=== PATIENT | male | born 2005 | race Caucasian/White ===

== ENCOUNTER 2023-01-08 10:02 | Emergency (ER) | payer OTHER, SELFPAY ==
[2023-01-08 10:13] VITALS: BP 121/82; PULSE 76; RESP 16; TEMP 37.7; O2SAT 99
--- NOTE | 2023-01-08 10:41 | ED.URI ---
HPI - URI/Sore Throat General Chief Complaint: Upper Respiratory Infection Stated Complaint: COVID+ Time Seen by Provider: 01/08/23 10:41 Source: patient Mode of arrival: ambulatory Limitations: no limitations History of Present Illness HPI Narrative: 17-year-old male presents with complaint of nasal congestion, sore throat, mild cough, headache, body aches, fever starting yesterday. No fever today. Not taking any [id number] medications to treat his symptoms. Did home COVID test today that was positive. States that his work needs note for quarantine. All systems reviewed and negative except as noted above. Related Data Home Medications Medication Instructions Recorded Confirmed No Home Medications 01/08/23 01/08/23 Allergies Allergy/AdvReac Type Severity Reaction Status Date / Time No Known Allergies Allergy Verified 01/08/23 10:13 Review of Systems Review of Systems: CONSTITUTIONAL: Reports fever, chills, or sweats. EYES: Denies visual changes, redness, or discharge. ENT: reports rhinorrhea, congestion, sore throat. Denies otalgia. CARDIOVASCULAR: Denies chest pain, palpitations, or edema. RESPIRATORY: reports cough. Denies dyspnea. GASTROINTESTINAL: Denies abdominal pain, nausea, vomiting, or diarrhea. GENITOURINARY: Denies dysuria or hematuria. SKIN: Denies rash or itching. MUSCULOSKELETAL: Denies back pain, joint pain, or myalgia. NEUROLOGIC: Denies headache, numbness, or weakness. PSYCHIATRIC: Denies anxiety or depression. All other systems reviewed are negative, except as documented in HPI. [facility] Past Medical History Medical History (Updated 01/08/23 @ 10:46 by Bety Christian NP) Anxiety Headache Surgical History Surgical History (Updated 12/10/21 @ 10:43 by Lili Goetz CMA) No history of previous surgery Family History Family History (Updated 12/10/21 @ 10:38 by Lili Goetz CMA) Mother Alcoholism Depression Grandparent Alcoholism Diabetes mellitus Hypertension Heart disease Depression Social History Social History (Updated 12/10/21 @ 10:39 by Lili Goetz CMA) Years smoked: 2 Smoking status: Never smoker Tobacco type: e-cigarettes/vaping Alcohol intake: never Substance use: current Substance use type: marijuana Living arrangements: with family Occupation/Education: occupation Agree to blood products: Yes Comments At time of signature, agree with nursing past medical, surgical, social and family history. There is no relevant family history pertinent to the presenting complaint. Exam Narrative: GENERAL: This is a well-nourished, well-developed patient, in no apparent distress. HEAD: normocephalic, atraumatic. EYES: PERRL. Sclera clear/white. Vision is grossly intact. EARS: External ears normal, auditory canals clear and without drainage, TMs normal without perforation. Hearing grossly intact. NOSE: External nose normal clear nasal drainage, erythema to bilateral nares without swelling. THROAT: Mucous membranes moist, Mild erythema and posterior pharynx without swelling or exudates. NECK: Neck supple, non-tender without lymphadenopathy, masses or thyromegaly. CARDIOVASCULAR: Regular rate and rhythm without murmurs, gallops, or rubs. RESPIRATORY: Clear to auscultation. Breath sounds equal bilaterally. No wheezes, rales, or rhonchi. SKIN: warm, Dry, intact with no suspicious lesions or rash, good texture and turgor. NEURO: awake, alert, and oriented to person, place and time. There were no obvious focal neurologic abnormalities. EXTREMITIES: No joint tenderness, effusion, or edema noted. Course Course Level of Care: Express Care Visit Vital Signs Vital signs: Vital Signs Temperature 37.7 C H 01/08/23 10:13 Pulse Rate 76 01/08/23 10:13 Respiratory Rate 16 01/08/23 10:13 Blood Pressure 121/82 01/08/23 10:13 Pulse Oximetry 99 01/08/23 10:13 Oxygen Delivery Room Air 01/08/23 10
== END 2023-01-08 11:00 | disposition home or self-care (01) ==
PROVIDERS: Emergency Provider Nurse Practitioner Family
DX: U07.1 COVID-19 (principal); F12.90 Cannabis use, unspecified, uncomplicated
CPT/HCPCS: 99211; G0463